=== PATIENT | male | born 1985 | race African-American/Black ===

== ENCOUNTER 2017-11-22 15:36 | Emergency (ER) | payer SELFPAY ==
[~2017-11-22] VITALS: Ht 175.3 cm; Wt 86.2 kg
[2017-11-22] MEDS ORDERED: Clindamycin 150mg cap ORAL ONE (16:15)
[2017-11-22] MEDS ORDERED: Lidocaine 2% 20mg/ml/Epi 0.005mg/ml 20ml vial INJ ONE (16:15)
[2017-11-22] MEDS ORDERED: Norco 5mg/325mg tab ORAL ONE (16:15)
--- NOTE | 2017-11-22 16:53 | Emergency Room Report ---
History of Present Illness General Chief Complaint: Pain Source: Patient Present Illness HPI 32-year-old male presents to the emergency department complaining of pain, tenderness and swelling to the localized area just above his buttocks. Patient reports that his symptoms have been progressive over the course of one week. Patient denies previous episodes of similar symptoms. Patient denies fevers or chills or recent trauma or fall. Denies numbness tingling or loss of sensation or gross motor movements of the extremities, incontinence of bowel or bladder. Denies CP, Palpitations, LOC, AMS, dizziness, Changes in Vision, weakness or a sudden severe headache. Pt. denies midline bone tenderness. Allergies: Coded Allergies: No Known Allergies (Unverified , 11/22/17) Patient History Past Medical History: see triage record Past Surgical History: none Pertinent Family History: none Reviewed Nursing Documentation: PMH: Agreed; PSxH: Agreed Nursing Documentation-PMH Past Medical History: No Stated History Review of Systems All Other Systems: negative except mentioned in HPI Physical Exam Vital Signs Date Time Temp Pulse Resp B/P (MAP) Pulse Ox O2 Delivery O2 Flow Rate FiO2 11/22/17 15:40 98.6 92 18 118/67 96 Room Air 98.6 Sp02 EP Interpretation: reviewed, normal General Appearance: alert, GCS 15, non-toxic, moderate distress Head: normocephalic, atraumatic Eyes: bilateral eye normal inspection, bilateral eye PERRL ENT: hearing grossly normal, normal voice Neck: full range of motion Respiratory: lungs clear, normal breath sounds, speaking full sentences Cardiovascular #1: regular rate, rhythm Rectal: other - infected pilonidal abscess approximately 2.5 inches in diameter induration in the gluteal cleft. Fluctuance palpated, and erythema noted. Musculoskeletal: back normal, gait/station normal, normal range of motion, non- tender Neurologic: alert, oriented x3, responsive, motor strength/tone normal, sensory intact, speech normal, grossly normal Psychiatric: judgement/insight normal Skin: normal color, no rash, warm/dry, well hydrated Lymphatic: no adenopathy Procedures Incision and Drainage Incision and Drainage : Consent: Verbal Site: gluteal cleft Blade Size: 11 I & D Procedure: betadine prep, sterile drapes applied, sterile dressing applied Wound Location: other - gluteal cleft Wound's Depth, Shape: linear Wound Explored: contaminated - moderate amt of purulent drainage Anesthesia: Lidocaine w/ Epi Splint Applied?: No Sling Applied?: No Patient Tolerated: Well Complications: None Medical Decision Making PA Attestation Dr. Gold is my supervising Physician whom patient management has been discussed with. Diagnostic Impression: Primary Impression: Pilonidal cyst with abscess ER Course 32-year-old male presents to the emergency department complaining of pain, tenderness and swelling to the localized area just above his buttocks. Patient reports that his symptoms have been progressive over the course of one week. Patient denies previous episodes of similar symptoms. Patient denies fevers or chills or recent trauma or fall. Denies numbness tingling or loss of sensation or gross motor movements of the extremities, incontinence of bowel or bladder. Denies CP, Palpitations, LOC, AMS, dizziness, Changes in Vision, weakness or a sudden severe headache. Pt. denies midline bone tenderness. Denies BRBPR, contusion, fracture, Constipation or rectal pain. pt. denies hx of pilonidal cysts or abscess. Ddx considered but are not limited to cellulitis, abscess, sam-rectal abscess, hemorrhoid just to name a few. . Vital signs: are WNL, pt. is afebrile H&PE are most consistent with infected pilonidal abscess approximately 2.5 inches in diameter. induration, fluctuance palpated, and erythema noted. ORDERS: pain med ED INTERVENTIONS: -I & D recommended- - Pain medication -Clindamycin PO - Pt. stable for continued antibiotic therapy as outpatient with close follow up. DISCHARGE: At this time pt. is stable for d/c to home. Will provide printed patient care instructions, and any necessary prescriptions. Care plan and follow up instructions have been discussed with the patient prior to discharge. Last Vital Signs Date Time Temp Pulse Resp B/P (MAP) Pulse Ox O2 Delivery O2 Flow Rate FiO2 11/22/17 15:40 98.6 92 18 118/67 96 Room Air 98.6 Disposition: HOME, SELF-CARE Condition: Stable Scripts Hydrocodone Bit/Acetaminophen 5-325* (NORCO 5-325*) 1 Each Tablet 1 TAB ORAL Q6H PRN for For Pain, #9 TAB 0 Refills Prov: Tia Alvarado 11/22/17 Ibuprofen* (MOTRIN*) 600 Mg Tablet 600 MG ORAL THREE TIMES A DAY, #30 TAB 0 Refills Prov: Tia Alvarado 11/22/17 Clindamycin Hcl (CLINDAMYCIN HCL) 300 Mg Capsule 300 MG ORAL TID for 7 Days, #21 CAP Prov: Tia Alvarado 11/22/17 Patient Instructions: Pilonidal Cyst Additional Instructions: Take medications as directed. Follow up with a Primary Care Provider in 3-5 days, even if your symptoms have resolved. --Please review list of primary care clinics, if you do not already have a primary care provider Return sooner to ED if new symptoms occur, or current symptoms become worse. Do not drink alcohol, drive, or operate heavy machinery while taking [ ] as this may cause drowsiness. - Please note that this Emergency Department Report was dictated using [employer] judge technology software, occasionally this can lead to erroneous entry secondary to interpretation by the dictation equipment. Tia Alvarado Nov 22, 2017 16:53
[2017-11-22] MEDS ORDERED: IBUPROFEN600 MG ORAL (17:01)
[2017-11-22] MEDS ORDERED: CLINDAMYCIN HC300 MG ORAL (17:01)
[2017-11-22] MEDS ORDERED: NORCO 5-325 TA1 EACH ORAL (17:02)
[2017-11-22 17:20] VITALS: BP 118/67
== END 2017-11-22 17:20 | disposition home or self-care (01) ==
LOC: EMR 16:09
DX: L05.01 Pilonidal cyst with abscess (principal)
CPT/HCPCS: 10060; 99284

== ENCOUNTER 2018-05-23 13:49 | Emergency (ER) | payer MEDICAID ==
[~2018-05-23] VITALS: Ht 175.3 cm; Wt 133.8 kg
[~2018-05-23 13:49] MED LIST: CLINDAMYCIN HC300 MG ORAL; IBUPROFEN600 MG ORAL; NORCO 5-325 TA1 EACH ORAL
[2018-05-23] MEDS ORDERED: NKM (13:56)
--- NOTE | 2018-05-23 14:02 | NUR ---
ED Nurse Note: Pt came in from home due to cyst felt on L upper buttock x 3-4 days, pain 8/10 minerva. AOx4, VSS. Will cont to monitor.
[2018-05-23] MEDS ORDERED: LET 3ml Soln TOPIC ONE (14:15)
[2018-05-23] MEDS ORDERED: Bupivacaine 0.25% Inj 30ml INJ ONE (14:15)
[2018-05-23] MEDS ORDERED: Bactrim-DS 1 tab ORAL ONE (14:15)
--- NOTE | 2018-05-23 14:30 | Emergency Room Report ---
History of Present Illness General Chief Complaint: Skin Rash/Abscess Source: Patient Present Illness HPI The patient repeat presents with gluteal pain. He had a pilonidal abscess I and D in November 2017. He took antibiotics at that time. A wick was not placed. He feels the same problem at this time. He denies any fevers or chills. There is no numbness in the area. No NVD, dysuria, back pain (aside from area). No major medical problems. Allergies: Coded Allergies: No Known Allergies (Unverified , 11/22/17) Patient History Past Medical History: see triage record Social History: Reports: smoking Social History Narrative TSA agent Reviewed Nursing Documentation: PMH: Agreed; PSxH: Agreed Nursing Documentation-PMH Past Medical History: No Stated History Review of Systems Constitutional: Denies: fever Gastrointestinal: Reports: see HPI Genitourinary: Reports: see HPI Musculoskeletal: Reports: see HPI Skin: Reports: see HPI Neurological: Denies: numbness Physical Exam Vital Signs Date Time Temp Pulse Resp B/P (MAP) Pulse Ox O2 Delivery O2 Flow Rate FiO2 05/23/18 13:53 98.4 87 18 116/63 96 Room Air Sp02 EP Interpretation: reviewed, normal General Appearance: well appearing, no apparent distress, non-toxic Head: normocephalic, atraumatic Eyes: bilateral eye normal inspection, bilateral eye PERRL ENT: hearing grossly normal, normal voice, moist mucus membranes Neck: full range of motion, supple Respiratory: no respiratory distress, speaking full sentences Gastrointestinal: normal inspection, normal bowel sounds, non tender, scaphoid Rectal: other - involved area away from rectum Musculoskeletal: no calf tenderness Neurologic: alert, normal gait, grossly normal Psychiatric: mood/affect normal Skin: warm/dry, other - Gluteal abscess left side without erythema. This is underneath the area of the previous incision and drainage. Procedures Incision and Drainage Incision and Drainage : Consent: Verbal Blade Size: 11 I & D Procedure: betadine prep, sterile drapes applied, sterile dressing applied, gauze wick placed Wound Location: other - buttock Wound's Depth, Shape: other - Subcutaneous Wound Explored: contaminated Anesthesia: other - 0.25% bupivicaine Patient Tolerated: Well Complications: None Progress pus expressed with incision. Loculations broken up. Irrigated. Wick placed. Tolerated fairly well. Medical Decision Making Diagnostic Impression: Primary Impression: Pilonidal abscess ER Course Patient repeat presents with gluteal abscess. Antibiotics are indicated as well as incision and drainage. The patient will be given topical anesthesia along with injected. He is also given Bactrim and Motrin since he is driving himself. I and D performed. Instructed to return 2 days for re-evaluation and possible wick replacement. Also suggested this might need to surgically excised in the future. Patient stable for outpatient observation and treatment. Last Vital Signs Date Time Temp Pulse Resp B/P (MAP) Pulse Ox O2 Delivery O2 Flow Rate FiO2 05/23/18 15:19 98.4 74 20 121/69 98 Room Air Status: improved Disposition: HOME, SELF-CARE Condition: Improved Scripts Trimethoprim/Sulfamethoxazole 160/800* (BACTRIM DS TABLET*) 1 Each Tablet 1 TAB ORAL Q12H, #14 TAB 0 Refills Prov: Jewel Jalloh MD 05/23/18 Ibuprofen* (MOTRIN*) 600 Mg Tablet 600 MG ORAL Q6H PRN for For Pain, #20 TAB Prov: Jewel Jalloh MD 05/23/18 Tramadol Hcl* (ULTRAM*) 50 Mg Tablet 50 MG ORAL Q6H PRN for For Pain, #12 TAB 0 Refills Prov: Jewel Jalloh MD 05/23/18 Jewel Jalloh MD May 23, 2018 14:30
[2018-05-23 15:01] VITALS: BP 121/69
[2018-05-23] MEDS ORDERED: BACTRIM DS TAB1 EAC1 ORAL (15:14)
[2018-05-23] MEDS ORDERED: IBUPROFEN600 MG ORAL (15:14)
[2018-05-23] MEDS ORDERED: TRAMADOL HCL50 MG ORAL (15:14)
[2018-05-23 15:19] VITALS: BP 121/69
--- NOTE | 2018-05-23 15:20 | NUR ---
ER DISCHARGE NOTE: Patient is cleared to be discharged per ERMD, pt is aox4, on room air, with stable vital signs. pt was given dc and prescription instructions, pt was able to verbalize understanding, pt id band removed. pt is able to ambulate with steady gait. pt took all belongings.
== END 2018-05-23 15:19 | disposition home or self-care (01) ==
LOC: EMR 14:00
DX: L05.01 Pilonidal cyst with abscess (principal); F17.200 Nicotine dependence, unspecified, uncomplicated
CPT/HCPCS: 10080; 96374; 99284; J3490; Z7502

== ENCOUNTER 2018-05-29 08:31 | Emergency (ER) | payer MEDICAID ==
[~2018-05-29] VITALS: Ht 175.3 cm; Wt 90.7 kg
[~2018-05-29 08:31] MED LIST changes: +BACTRIM DS TAB1 EAC1 ORAL; +NKM; +TRAMADOL HCL50 MG ORAL
[2018-05-29 08:42] VITALS: BP 125/60
--- NOTE | 2018-05-29 08:51 | Emergency Room Report ---
History of Present Illness General Chief Complaint: Wound Recheck/Suture Removal Source: Patient Present Illness HPI Patient is a 33-year-old male who presented for a wound check. Patient recent incision and drainage of pilonidal abscess. Patient was noted to have no current complaints. He stated the packing had fallen out. He denies any increased pain or fever. Allergies: Coded Allergies: No Known Allergies (Unverified , 11/22/17) Patient History Reviewed Nursing Documentation: PMH: Agreed; PSxH: Agreed Nursing Documentation-PMH Past Medical History: No Stated History Review of Systems All Other Systems: negative except mentioned in HPI Physical Exam Vital Signs Date Time Temp Pulse Resp B/P (MAP) Pulse Ox O2 Delivery O2 Flow Rate FiO2 05/29/18 08:35 97.9 63 19 127/59 97 Room Air General Appearance: well appearing, no apparent distress, alert, GCS 15 Head: normocephalic, atraumatic ENT: hearing grossly normal, normal voice Neck: full range of motion, supple Respiratory: no respiratory distress, speaking full sentences Gastrointestinal: normal inspection Rectal: normal exam Neurologic: normal inspection, alert, oriented x3, normal gait Psychiatric: mood/affect normal Skin: other - healed incision, no erythema Medical Decision Making Diagnostic Impression: Primary Impression: Encounter for wound re-check ER Course Patient presented for wound check. Differential diagnosis included was not limited to infected wound, nonhealed wound, neuroma, healed wound. Patient has a benign exam and does not appear to require any further imaging or laboratory testing at this time. Patient does not appear to have any evidence of infection. Patient will be discharged home. He is to resume normal activities. Last Vital Signs Date Time Temp Pulse Resp B/P (MAP) Pulse Ox O2 Delivery O2 Flow Rate FiO2 05/29/18 08:42 97.8 77 20 125/60 98 Room Air Status: unchanged Disposition: HOME, SELF-CARE Condition: Stable Patient Instructions: Wound Check Ibrahima Gold MD May 29, 2018 08:51
[2018-05-29 08:52] VITALS: BP 122/65
== END 2018-05-29 08:53 | disposition home or self-care (01) ==
LOC: EMR 08:50
DX: Z48.01 Encounter for change or removal of surgical wound dressing (principal)
CPT/HCPCS: 99281

== ENCOUNTER 2019-03-01 11:03 | Emergency (ER) | payer MEDICAID ==
[~2019-03-01] VITALS: Ht 175.3 cm; Wt 70.3 kg
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
[2019-03-01 11:23] VITALS: BP 115/76
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
[2019-03-01] MEDS ORDERED: IBUPROFEN600 MG ORAL (12:29)
[2019-03-01 12:35] VITALS: BP 120/86
--- NOTE | 2019-03-01 12:35 | NUR ---
ED Nurse Note: SLING APPLIED ON RT SHOULDER AT BEDSIDE.
--- NOTE | 2019-03-01 12:36 | NUR ---
ED Nurse Note: Pt cleared by health care Provider for discharge after sling was applied on Rt arm. DC instructions/prescription was given and explained to pt and verbalized understanding of teachings. All medical deviecs such as ID band removed. Pt is AAO x4, ambulatory and left with all personal belongings.
--- NOTE | 2019-03-01 14:31 | Diagnostic Imaging Report ---
Indication: Right shoulder pain COMPARISON: None Findings: 3 views of the right shoulder were obtained. No acute fractures, malalignment, erosions or periostitis are identified. Soft tissues are unremarkable. Impression: Negative for acute injury
== END 2019-03-01 12:37 | disposition home or self-care (01) ==
LOC: EMR 11:40
DX: S40.011A Contusion of right shoulder, initial encounter (principal); Y04.0XXA Assault by unarmed brawl or fight, initial encounter; Y93.9 Activity, unspecified; Y92.9 Unspecified place or not applicable
CPT/HCPCS: 73030; Z7502; 99283